=== PATIENT | female | born 1960 | race Hispanic/Latino ===

== ENCOUNTER 2020-04-21 16:23 | Emergency (ER) | payer OTHER ==
[~2020-04-21] VITALS: Ht 149.9 cm; Wt 74.8 kg
[2020-04-21] MEDS ORDERED: DIPHENHYDRAMINE HCL INJ 50 MG/ML VIAL IV ONE (16:45)
[2020-04-21] MEDS ORDERED: DEXAMETHASONE SOD PHOS 10 MG/1 ML VIAL IV ONE (16:45)
[2020-04-21] MEDS ORDERED: LEVOFLOXACIN 500MG/D5W 100ML 100 ML IV ONE (16:45)
[2020-04-21] MEDS ORDERED: METHYLPREDNISOLONE SOD SUCC 125 MG/2ML VIAL ONE (16:49)
[2020-04-21] MEDS ORDERED: METHYLPREDNISOLONE SOD SUCC 125 MG/2ML VIAL IV ONE (17:00)
--- OUTSIDE RECORDS SUMMARY | 2020-04-21 17:11 | XMS REPORT ---
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 Info Not Available Non Drug Allergy Encounters Encounter Location Date Patient here to go over abnormal lab results [facility] February 26, 2015 Patient here for a follow up on BP [facility] [id number] New patient here with complaints of pain and swelling of the Right hand,states she thinks she may have arthritis. Rt hand is puffy and wrist is stiff;unable to flex [facility] January 14, 2015 Patient here to go over lab results [facility] January 22, 2015 Patient is here for wwe [facility] February 18 5 Problems Problem Type Condition ICD-9 Code Onset Dates Condition Statu s Problem Overweight (BMI 25.0-29.9) 278.02 A ctive Problem Hypertension 401.9 Active Problem BMI 29.0-29.9,adult V85.25 Active Problem Hyperlipidemia LDL goal <100 272.4 Active Problem Constipation 564.00 Active Problem Insomnia 780.52 Active Problem Swelling of joint, hand, right 719.04 Active Problem History of gout V12.29 Active Problem Degenerative arthritis of hand 715.94 Active Problem Pain, joint, hand, right 719.44 Act jennifer Assessment Constipation 564.00 Active Assessment Degenerative arthritis of hand 715.94 Active Assessment Hyperlipidemia LDL goal <100 272.4 Active Assessment Insomnia 780.52 Active Assessment Hypertension 401.9 Active Medications Medication Code System Code Instructions Start Date End Date Status Dosage Losartan Pot[facility] [address]-99 50-12.5 MG Orally Once a day Active 1 tablet Trazodone HCl [facility] [address]-95 50 mg Orally once every ni ght March 18, 2015 Active as directed Lactulose [place] [address]-24 10 GM/15ML Orally twice a day (bi d) Apr 17, 2015 Active 15 ml as needed Crestor [place] [address]-95 40 mg Orally Once a day February 26, 2015 Active 1 tablet Losartan Potassium-HCTZ [place] [address]-19 50-12.5 MG Orall y Once a day February 26, 2015 Active 1 tablet Vimovo [place] [address]-34 375-20 MG Orally Twice a day May 17, 2015 Active 1 tablet before meals Crestor [facility] [address]-46 40 mg Orally Once a day A ctive 1 tablet Pennsaid [place] [address]-96 2 % Transdermal Twice a day May 17, 2015 Active 2 applications to affected area Lactulose [place] [address]-93 10 GM/15ML Orally Once a day February 26, 2015 Apr 27, 2015 Active 15 ml as needed Social History Social History Element Qualifiers Date Reported Sexual History: . Are you currently sexuall y active? Yes, Partner Preference: Heterosexual March 18, 2015 Tobacco Use: . Are you a: never smoker March 18, 2015 Use of recreational / street drugs? . Answer: No March 18, 2015 Do you have pets? . Status: No March 18, 2015 Caffeine intake? . Status: No March 18, 2015 New since last visit: none. March 18, 2015 Do you exercise? . Answer: No March 18, 2015 Do you drink alcohol? . Status: No March 18, 2015 Family history Qualifier Description Comment Date Reported Maternal Grandmother Comment not available March 18, 2015 Paternal Grandmother Comment not available March 18, 2015 Siblings alive Comment not available March 18 Maternal Grandfather Comment not available March 18, 2015 Children Comment not available March 18 Father unknown Comment not available March 18 Paternal Grandfather Comment not available March 18, 2015 Mother alive Comment not available March 18 Other: Comment not available March 18 Vital Signs Date/Time: March 18, 2015 Weight 150.4 lbs Height 59 in Temperature 98.6 F Cardiac Monitoring Heart Rate 64 /min Blood Pressure Diastolic 69 mm Hg Blood Pressure Systolic 118 mm Hg Summary Purpose eClinicalWorks Submission
--- OUTSIDE RECORDS SUMMARY | 2020-04-21 17:11 | XMS REPORT ---
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 Info Not Available Non Drug Allergy Encounters Encounter Location Date Patient here to go over abnormal lab results [facility] February 26, 2015 New patient here with complaints of pain and swelling of the Right hand,states she thinks she may have arthritis. Rt hand is puffy and wrist is stiff;unable to flex [facility] January 14, 2015 Patient here to go over lab results [facility] January 22, 2015 Patient is here for wwe [facility] February 18 5 Problems Problem Type Condition ICD-9 Code Onset Dates Condition Statu s Assessment BMI 29.0-29.9,adult V85.25 Active Assessment Well woman exam with routine gynecological exam V72.31 Active Assessment Colon cancer screening V76.51 Activ e Assessment UTI (lower urinary tract infection) 599.0 Active Assessment Overweight (BMI 25.0-29.9) 278.02 A ctive Problem Pain, joint, hand, right 719.44 Act jennifer Problem Swelling of joint, hand, right 719.04 Active Problem Degenerative arthritis of hand 715.94 Active Problem BMI 29.0-29.9,adult V85.25 Active Problem Overweight (BMI 25.0-29.9) 278.02 A ctive Problem History of gout V12.29 Active Problem Hypertension 401.9 Active Medications Medication Code System Code Instructions Start Date End Date Status Dosage Vimovo [facility] [address]-79 375-20 MG Orally Twice a day January 22, 2015 March 23, 2015 Active 1 tablet before meals Pennsaid [facility] [address]-56 2 % Transdermal Twice a day January 022014March 23, 2015 Active 2 applications to affected a brandi Ciprofloxacin HCl [facility] [address]-41 500 mg Orally Twice a day February 21, 2015 February 28, 2015 Active 1 tablet Lisinopril-Hydrochlorothiazide [facility] [address]-24 1 0-12.5 MG Orally Once a day January 22, 2015 Active 1 tablet Social History Social History Element Qualifiers Date Reported Sexual History: . Are you currently sexuall y active? Yes, Partner Preference: Heterosexual February 18, 2015 Tobacco Use: . Are you a: never smoker February 18, 2015 Use of recreational / street drugs? . Answer: No February 18, 2015 Do you have pets? . Status: No February 18, 2015 Caffeine intake? . Status: No February 18, 2015 New since last visit: none. February 18, 2015 Do you exercise? . Answer: No February 18, 2015 Do you drink alcohol? . Status: No February 18, 2015 Vital Signs Date/Time: February 18, 2015 Weight 148.8 lbs Height 59 in Temperature 97.2 F Cardiac Monitoring Heart Rate 71 /min Blood Pressure Diastolic 78 mm Hg Blood Pressure Systolic 118 mm Hg Results UA w/ Reflex to Culture UA Nitrite(-Negative ) Negative UA Urobilinogen(-0.1-1.0 mg/dL) <=1.0 UA Spec Grav(-<=1.030 ) 1.025 UA Hyal Cast(-0-2 /LPF) 9 UA pH(-5.0-8.0 ) 5.0 UA Sq Epi(-Few /LPF) Occasional UA Protein(-Negative mg/dL) Negative UA Mucus(-None Seen /LPF) Few UA Glucose(-Negative mg/dL) Negative UA Bacteria(-None Seen /HPF) Occasional UA Ketones(-Negative mg/dL) Negative UA WBC(-0-5 /HPF) 2 UA Bili(-Negative ) Negative UA Color(-Yellow ) Yellow UA Blood(-Negative ) Negative UA RBC(-0-2 /HPF) 2 UA Turbidity(-Clear ) Clear UA Leuk Est(-Negative ) Trace Pap SurePath w/ GC/CT Reflex HPV mRNA E6 /E7 Previous Biopsy(- ) UNK Pap Source(- ) Vagina Date of LMP(- ) UNK GC/CT Note(- ) SEE NOTE Previous Pap(- ) UNK Interpretation/Result(- ) SEE NOTE Clinical Info(- ) UNK Statement of Adequacy(- ) SEE NOTE N gonorrhea by Amp Det (APTIMA)(-NOT DETECTED ) NOT DE TECTED Nurse Practitioner Per Diem(- ) SEE NOTE C trachomatis by Amp Det (APTIMA)(-NOT DETECTED ) NOT DETECTED Hgb A1c Hgb A1C(-<=5.6 %) 6.0 Thyroid Panel T3 Uptake(-31-39 %) 30 T4(-4.7-13.3 ug/dl) 10.6 TSH(-0.360-3.740 uIU/mL) 2.790 Summary Purpose eClinicalWorks Submission
--- OUTSIDE RECORDS SUMMARY | 2020-04-21 17:11 | XMS REPORT | Summary of Care ---
Author Organization Unknown Address Unknown Phone Unavailable Encounter HQ Courtney_estrellita([facility]) [id number] Date(s): 01/14/15 - 01/14/15 [facility] [address] [place] [address]- [phone] Discharge Disposition: Home Physician Attending: Mellissa Georges MD Vital Signs No data available for this section Problem List No data available for this section Allergies, Adverse Reactions, Alerts Substance Reaction Severity Status penicillins Active Medications No data available for this section Results No data available for this section Immunizations No data available for this section Procedures No data available for this section Social History No data available for this section Assessment and Plan No data available for this section
--- OUTSIDE RECORDS SUMMARY | 2020-04-21 17:11 | XMS REPORT ---
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 Info Not Available Non Drug Allergy Encounters Encounter Location Date New patient here with complaints of pain and swelling of the Right hand,states she thinks she may have arthritis. Rt hand is puffy and wrist is stiff;unable to flex [facility] January 14, 2015 Problems Problem Type Condition ICD-9 Code Onset Dates Condition Statu s Assessment Hypertension 401.9 Active Assessment Swelling of joint, hand, right 719.04 Active Assessment History of gout V12.29 Active Assessment Overweight (BMI 25.0-29.9) 278.02 A ctive Assessment BMI 29.0-29.9,adult V85.25 Active Problem Swelling of joint, hand, right 719.04 Active Problem History of gout V12.29 Active Problem Pain, joint, hand, right 719.44 Act jennifer Problem Overweight (BMI 25.0-29.9) 278.02 A ctive Assessment Pain, joint, hand, right 719.44 Act jennifer Problem Hypertension 401.9 Active Problem BMI 29.0-29.9,adult V85.25 Active Medications Medication Code System Code Instructions Start Date End Date Status Dosage Naproxen [facility] [address]-90 500 mg Orally every 12 hrs JanuaryJanuary 28, 2015 Active 1 tablet as needed PredniSONE [facility] [address]-64 10 mg Orally once a day January 14 015 January 21, 2015 Active 4 tablet with food on day 1, take 3 tab on day 2, take 2 tab on day 3 take1 tab on day 4-7 Social History Social History Element Qualifiers Date Reported Sexual History: . Are you currently sexuall y active? Yes, Partner Preference: Heterosexual January 14, 2015 Tobacco Use: . Are you a: never smoker January 14, 2015 Use of recreational / street drugs? . Answer: No January 14, 2015 Do you have pets? . Status: No January 14, 2015 Caffeine intake? . Status: No January 14, 2015 New since last visit: none. January 14, 2015 Do you exercise? . Answer: No January 14, 2015 Do you drink alcohol? . Status: No January 14, 2015 Vital Signs Date/Time: January 14, 2015 Weight 147.3 lbs Height 59 in Temperature 98.6 F Cardiac Monitoring Heart Rate 59 /min Blood Pressure Diastolic 95 mm Hg Blood Pressure Systolic 155 mm Hg Results CMP (Comprehensive Metabolic Panel) Albumin Lvl(-3.5-5.0 g/dL) 4.5 Total Protein(-6.4-8.4 g/dL) 7.9 Chloride Lvl(-95-109 mEq/L) 105 eGFR(- mL/min/1.73m2) 83 CO2(-24-32 mEq/L) 27 Alk Phos(-39-136 U/L) 132 AGAP(-10.0-20.0 mEq/L) 13.2 AST(-0-37 U/L) 17 Glucose Lvl(-70-99 mg/dL) 91 ALT(-0-65 U/L) 31 Creatinine Lvl(-0.5-1.4 mg/dL) 0.8 Calcium Lvl(-8.5-10.5 mg/dL) 9.7 BUN(-7-22 mg/dL) 16 Sodium Lvl(-135-145 mEq/L) 141 B/C Ratio(-6-25 ) 20 A/G Ratio(-0.7-1.6 ) 1.3 Potassium Lvl(-3.5-5.1 mEq/L) 4.2 Globulin(-2.0-4.0 g/dL) 3.4 Vitamin D 1,25-Dihydroxy Vitamin D 1,25 (OH)2 Total(-18-72 pg/mL) 49 Vitamin D3 1,25 (OH)2(- pg/mL) 49 Vitamin D2 1,25 (OH)2(- pg/mL) < 8 Rheumatoid Factor RF Qnt(-0-20 IU/mL) <10 CRP CRP(-<=2.9 mg/L) 17.7 RORO (Antinuclear Antibody) RORO(-Negative ) Negative CBC w/ Auto Diff and Platelet Hgb(-12.0-16.0 g/dL) 13.9 RBC(-4.20-5.40 M/CMM) 4.61 MCV(-80.0-98.0 fl) 92.7 Hct(-36.0-48.0 %) 42.7 MCHC(-32.0-36.0 g/dL) 32.6 MCH(-27.0-31.0 pg) 30.2 Platelet(-133-450 K/CMM) 278 RDW(-11.5-14.5 %) 14.0 MPV(-7.4-10.4 fl) 9.7 WBC(-3.7-10.4 K/CMM) 7.1 Summary Purpose eClinicalWorks Submission
--- OUTSIDE RECORDS SUMMARY | 2020-04-21 17:11 | XMS REPORT | Summary of Care ---
Author Organization Unknown Address Unknown Phone Unavailable Encounter HQ Hollyr_estrellita([facility]) [id number] Date(s): 02/18/15 - 02/18/15 [facility] [address] [place] [address]- Discharge Disposition: Home Physician Attending: Mellissa Georges MD Physician_Referring: Mellissa Georges MD Vital Signs No data [...]
[2020-04-21] MEDS ORDERED: KETOROLAC TROMETHAMINE 30 MG/ML VIAL ONE (17:20)
--- NOTE | 2020-04-21 17:20 | Emergency Department Note ---
History of Present Illnes History of Present Illness Chief Complaint: Skin Rash or Abscess History of Present Illness This is a 59 year old female Chief Complaint Comment pt states she was stung by a Bee yesterday and now has redness and swelling to hand and forearm. . Historian: Patient Arrival Mode: Car Onset (how long ago): day(s) (1) Location: right hand Quality: pain and swelling Radiation: Denies non-radiation, Denies back, Denies neck, Denies extremity, Denies abdomen, Denies periumbilical, Denies flank, Denies proximal, Denies distal, Denies other Severity: moderate Onset quality: gradual Duration (how long): day(s) (1) Timing of current episode: constant Progression: worsening Chronicity: new Context: Denies recent illness, Denies recent surgery, Denies recent immobil ization, Denies recent travel, Denies trauma/injury, Denies new medications, Denies hx of DVT/PE, Denies non-compliance w/ medications, Denies other Relieving factors: none Exacerbating factors: none Associated symptoms: Reports denies other symptoms Treatments prior to arrival: none Past Medical/Family History Physician Review I have reviewed the patient's past medical and family history. Any updates have been documented here. Past Medical History Recent Fever: No Clinical Suspicion of Infectio: No New/Unexplained Change in Ment: No Past Medical History: Hypertension Other Medical History: high chol Other Surgery: tubal Social History Smoking Cessation: Never Smoker Counseling Performed: No Alcohol Use: None Any Illegal Drug Use: No Physically hurt or threatened: No Other Any Pre-Existing Lines (PICC,: No Review of Systems Review of Systems Constitutional: Reports no symptoms EENTM: Reports no symptoms Cardiovascular: Reports no symptoms Respiratory: Reports no symptoms Gastrointestinal: Reports no symptoms Genitourinary: Reports no symptoms Musculoskeletal: Reports as per HPI Integumentary: Reports no symptoms Neurological: Reports no symptoms Psychological: Reports no symptoms Endocrine: Reports no symptoms Hematological/Lymphatic: Reports no symptoms Physical Exam Related Data Allergies: Coded Allergies: Penicillins (Verified Allergy, Unknown, 04/21/20) Triage Vital Signs Vital Signs Date Time Temp Pulse Resp B/P (MAP) Pulse Ox O2 Delivery O2 Flow Rate FiO2 04/21/20 16:30 98.5 87 18 191/87 99 Vital signs reviewed: Yes Physical Exam CONSTITUTIONAL Constitutional: Present well-developed, Present well-nourished HENT HENT: Present normocephalic, Present atraumatic, Present oropharynx clear/moist, Present nose normal HENT L/R: Present left ext ear normal, Present right ext ear normal EYES Eyes: Reports PERRL, Reports conjunctivae normal NECK Neck: Present ROM normal PULMONARY Pulmonary: Present effort normal, Present breath sounds normal CARDIOVASCULAR Cardiovascular: Present regular rhythm, Present heart sounds normal, Present capillary refill normal, Present normal rate GASTROINTESTINAL Abdominal: Present soft, Present nontender, Present bowel sounds normal GENITOURINARY Genitourinary: Present exam deferred SKIN Skin: Present warm, Present dry MUSCULOSKELETAL Musculoskeletal: Present ROM normal, Present tenderness (right HAND), Present swelling (RIGHR HAND) NEUROLOGICAL Neurological: Present alert, Present oriented x 3, Present no gross motor or sensory deficits PSYCHOLOGICAL Psychological: Present mood/affect normal, Present judgement normal Assessment & Plan Medical Decision Making MDM CELLULITIS //////allergic reaction Reassessment Reassessment better Assessment & Plan Final Impression: (1) Cellulitis of right hand Depart Disposition: HOME, SELF-CARE Last Vital Signs Date Time Temp Pulse Resp B/P (MAP) Pulse Ox O2 Delivery O2 Flow Rate FiO2 04/21/20 16:30 98.5 87 18 191/87 99 Medications in the ED Dexamethasone Sodium Phosphate 10 mg ONCE ONCE IV ; Start 04/21/20 at 16:45; Stop 04/21/20 at 17:00; Status DC Diphenhydramine HCl 25 mg NOW ONCE IV ; Start 04/21/20 at 16:45; Stop 04/21/20 at 17:00; Status DC Levofloxacin/ Dextrose 100 ml @ 100 mls/hr NOW ONCE IV Last administered on 04/21/20at 16:52; Admin Dose 100 MLS/HR; Start 04/21/20 at 16:45; Stop 04/21/20 at 17:44 Methylprednisolone Sodium Succinate 125 mg STK-MED ONCE .ROUTE ; Start 04/21/20 at 16:49; Stop 04/21/20 at 16:43; Status DC Methylprednisolone Sodium Succinate 125 mg ONCE ONCE IV Last administered on 04/21/20at 16:50; Admin Dose 125 MG; Start 04/21/20 at 17:00; Stop 04/21/20 at 17:02; Status DC Ketorolac Tromethamine 30 mg STK-MED ONCE .ROUTE ; Start 04/21/20 at 17:20; Stop 04/21/20 at 17:15; Status DC FINA QUINN MD Apr 21, 2020 17:20
[2020-04-21] MEDS ORDERED: KETOROLAC TROMETHAMINE 30 MG/ML VIAL IV STA (17:21)
== END 2020-04-21 18:00 | disposition home or self-care (01) ==
LOC: FSED 16:23
DX: L03.113 Cellulitis of right upper limb (principal); T63.441A Toxic effect of venom of bees, accidental (unintentional), initial encounter; I10 Essential (primary) hypertension; E78.00 Pure hypercholesterolemia, unspecified
CPT/HCPCS: 80053; 85025; 96374; 96375; 96376; 99283; J1200; J1885; J1956; J2930

== ENCOUNTER 2021-11-28 17:35 | Emergency (ER) | payer OTHER ==
[~2021-11-28] VITALS: Ht 149.9 cm; Wt 68.5 kg
[2021-11-28] MEDS ORDERED: ONDANSETRON HCL INJ 2MG/ML 2ML 2 MG/ML VIAL ONE (17:57)
[2021-11-28] MEDS ORDERED: SODIUM CHLORIDE 0.9% 1000ML 1,000 ML ONE ×2 (17:57→18:58)
[2021-11-28] MEDS ORDERED: FAMOTIDINE 20 MG/2 ML VIAL IV ONE (17:58)
[2021-11-28] MEDS ORDERED: FAMOTIDINE 20 MG/2 ML VIAL IV STA (18:11)
[2021-11-28] MEDS ORDERED: ONDANSETRON HCL INJ 2MG/ML 2ML 2 MG/ML VIAL IV STA (18:11)
[2021-11-28] MEDS ORDERED: SODIUM CHLORIDE 0.9% 1000ML 1,000 ML IV ONE ×2 (18:15→19:15)
[2021-11-28] MEDS ORDERED: ONDANSETRON ODT4 MG PO (21:10)
[2021-11-28] MEDS ORDERED: FAMOTIDINE40 MG PO (21:11)
[2021-11-28 21:21] VITALS: BP 150/89
== END 2021-11-28 21:21 | disposition home or self-care (01) ==
LOC: FSED 17:58
DX: R11.2 Nausea with vomiting, unspecified (principal); K52.9 Noninfective gastroenteritis and colitis, unspecified; E86.0 Dehydration; I95.1 Orthostatic hypotension; R79.89 Other specified abnormal findings of blood chemistry; I10 Essential (primary) hypertension; E78.5 Hyperlipidemia, unspecified
CPT/HCPCS: 74176; 80053; 81003; 82553; 84484; 85025; 96374; 96376; 99284; J2405; J7030; 93005